=== PATIENT | female | born 1985 | race Caucasian/White ===

== ENCOUNTER 2023-06-10 04:51 | Inpatient (IN) | payer MEDICAID ==
[2023-06-10] MEDS ORDERED: Lidocaine 1% 50 ML MDV INJECT ONE (05:01)
[2023-06-10] MEDS ORDERED: Oxytocin 10 Units/1 ML SDV IM ONE (05:01)
[2023-06-10 05:44] LABS: BASOPHILS PERCENT AUTO 0.2 % (0.0-1.0); EOSINOPHILS ABSOLUTE AUTO 0.2 K/mm3 (0.0-0.4); EOSINOPHILS PERCENT AUTO 1.6 % (0.0-6.0); HEMATOCRIT 42.7 % (42.0-52.0); HEMOGLOBIN 14.6 gm/dl (14.0-18.0); IMMATURE GRAN ABSOLUTE AUTO 0.06 K/mm3 (0.00-0.05); IMMATURE GRAN PERCENT AUTO 0.5 % (0.0-0.4); LYMPHOCYTES ABSOLUTE AUTO 2.9 K/mm3 (1.0-4.8); LYMPHOCYTES PERCENT AUTO 22.2 % (24.0-44.0); MEAN CORPUSCULAR HEMOGLOBIN 30.4 pg (28.0-32.0); MEAN CORPUSCULAR HGB CONC 34.2 g/dl (32.0-36.0); MEAN CORPUSCULAR VOLUME 88.8 fl (83.0-99.0); MEAN PLATELET VOLUME 11.9 fl (9.4-12.4); MONOCYTES ABSOLUTE AUTO 1.1 K/mm3 (0.0-0.8); NEUTROPHILS ABSOLUTE AUTO 8.9 K/mm3 (1.8-7.7); NEUTROPHILS PERCENT AUTO 67.5 % (41.0-71.0); PLATELET COUNT,PLT 179 K/mm3 (150-400); RED BLOOD CELL COUNT 4.81 M/mm3 (4.52-5.90); WHITE BLOOD CELL COUNT,WBC 13.16 K/mm3 (3.9-11.3)
[2023-06-10] MEDS ORDERED: Witch Hazel Medicated Pads 40/Jar TOP PRN (05:55)
[2023-06-10] MEDS ORDERED: Benzocaine/Menthol 20%-0.5% Spray 78 GM Cannister TOP PRN (05:55)
[2023-06-10] MEDS ORDERED: Acetaminophen 325 MG Tab PO PRN (05:55)
[2023-06-10] MEDS ORDERED: Docusate Sodium 100 MG Cap PO PRN (05:55)
[2023-06-10] MEDS: Ibuprofen 600 MG Tab PO PRN ×2 (10:41→19:50)
[2023-06-10 16:29] LABS: BARBITURATE SCREEN,URINE NEGATIVE (CUTOFF=200); BENZODIAZEPINES SCREEN,URINE NEGATIVE (CUTOFF=150); BUPRENORPHINE SCREEN,URINE NEGATIVE (CUTOFF=10); METHADONE SCREEN, URINE NEGATIVE (CUTOFF=200); METHAMPHETAMINES SCREEN, URINE NEGATIVE (CUTOFF=500); OXYCODONE SCREEN,URINE NEGATIVE (CUT0FF=100); PROPOXYPHENE SCREEN,URINE NEGATIVE (CUTOFF=300); THC SCREEN,URINE 20 NG/ML NEGATIVE (CUTOFF=50)
[2023-06-10 16:31] LABS: AMPHETAMINES SCREEN, URINE NEGATIVE (CUTOFF=500)
[2023-06-11] MEDS: Ibuprofen 600 MG Tab PO PRN (06:02)
== END 2023-06-11 11:30 | disposition home or self-care (01) | DRG 807 ==
LOC: JD.OBCHECK 04:51 → JD.OB 04:58 → JD.OBCHECK 04:58 → JD.OB 05:23 → EDSEX 05:23 → OBSVTOIN 05:23 → INTOOBSV 05:23 → JD.OB 05:49 → JD.OBCHECK 05:49 → JD.OB 05:52 → JD.OBCHECK 06:02 → JD.OB 06:05
PROVIDERS: ADMIT Obstetrics & Gynecology; ATTEND Obstetrics & Gynecology
PROC: 10E0XZZ Delivery of Products of Conception, External Approach (ICD-10-PCS; principal; 2023-06-10)
DX: O69.81X0 Labor and delivery complicated by cord around neck, without compression, not applicable or unspecified (principal); Z37.0 Single live birth; Z3A.36 36 weeks gestation of pregnancy; O99.334 Smoking (tobacco) complicating childbirth; F17.200 Nicotine dependence, unspecified, uncomplicated
CPT/HCPCS: 36415; 59409; 80306; 85025; 86592; 86850; 86900; 86901; A9270-GY